=== PATIENT | female | born 1935 | race Caucasian/White ===

== ENCOUNTER 2017-04-23 09:04 | Emergency (ER) | payer OTHER ==
[~2017-04-23] VITALS: Ht 167.6 cm; Wt 53.5 kg
--- NOTE | ~2017-04-23 | CR58 ---
[facility] A Service of [facility] / [facility] RADIOLOGY TEXT RESULTS PATIENT: GAGAN HORVATH LOCATION: [facility] : 37 UNIT #: [id number] AGE: [address]: Giovanny Guevara MD SEX: F ORDER DR: [id number] [place] [id number] [facility]. [place], [place] [address] [id number] E MR#: [id number] Acc #: [id number] NAME: GAGAN HORVATH : 1935 SEX: F STUDY DATE/TIME: UNIT: [facility] ROOM: STUDY DESCRIPTION: CR Cervical Spine 2 or 3 Views Attending Physician: Giovanny Guevara Ordering Physician: Ed Jorden Morse M.D. Primary Care Physician: Shree Arguello Jr., M.D. MEDICAL IMAGING REPORT This report is preliminary unless electronic signature is present EXAM Cervical spine series 04/23/2017 1114 hours HISTORY Patient fell this morning with neck pain since fall, bruising on right knee COMPARISON None FINDINGS AP, lateral and open mouth views are performed. Lateral swimmer's view included. C1-T1 are visualized. There is no prevertebral soft tissue swelling, fracture or malalignment. There is disc height loss and endplate spurring most prominent at C5-6 and C6-7. There is facet arthropathy in the mid cervical levels, left greater than right. IMPRESSION 1. No acute fracture or malalignment. 2. Degenerative disc disease and facet arthropathy C5-6 and C6-7. There is facet arthropathy left greater than right in the mid cervical levels. Findings appear chronic. Dictated by... Maribel Aaron M.D. THIS IS AN ELECTRONICALLY VERIFIED REPORT Maribel Aaron M.D. at 04/23/2017 2:31 PM SMM/torres TD: 04/23/2017 13:46 JOB #: [id number] [facility] A Service of [facility] / [facility] RADIOLOGY TEXT RESULTS PATIENT: GAGAN HORVATH LOCATION: [facility] : 37 UNIT #: [id number] AGE: [address]: Giovanny Guevara MD SEX: F ORDER DR: MEDICAL IMAGING REPORT Page 1 of 1 COPY
--- NOTE | ~2017-04-23 | CR173 ---
[facility] RADIOLOGY TEXT RESULTS PATIENT: GAGAN HORVATH LOCATION: [facility] : 37 UNIT #: [id number] AGE: [address]: Giovanny Guevara MD SEX: F ORDER DR: [id number] [facility] [address] [place], [place] [address] [id number] E MR#: [id number] Acc #: [id number] NAME: GAGAN HORVATH : 1935 SEX: F STUDY DATE/TIME: 04/23/2017 11:20 UNIT: [facility] ROOM: STUDY DESCRIPTION: CR Knee 3 Views Rt Attending Physician: Prosper Guevara M.D. Ordering Physician: Ed Doctor [id number] [facility] Primary Care Physician: Shree Arguello Jr., M.D. MEDICAL IMAGING REPORT This report is preliminary unless electronic signature is present EXAM Right knee 3 views 04/23/2017 1120 hours HISTORY Patient fell this morning with complaint of bruising and pain at right knee. COMPARISON None. FINDINGS AP, lateral and sunrise views demonstrate atherosclerotic changes and surgical clips in the soft tissues medially and posteriorly. There is no knee joint effusion or fracture seen. The patella appears low riding on the lateral view which could be due to positioning but could indicate underlying ligamentous or tendinous injury. There is no fracture or significant spurring. IMPRESSION 1. No joint effusion or fracture. On the lateral view, the patella appears to be inferiorly displaced or low-riding. This could be indicative of prior tendon or ligament injury. Correlate clinically. There is no significant joint space loss or spurring. No fracture. 2. Diffuse atherosclerotic changes with surgical clips present. Dictated by... Maribel Aaron M.D. THIS IS AN ELECTRONICALLY VERIFIED REPORT Maribel Aaron M.D. at 04/23/2017 2:31 PM [facility] A Service of [facility] RADIOLOGY TEXT RESULTS PATIENT: GGAAN HORVATH LOCATION: [facility] : 37 UNIT #: [id number] AGE: [address]: Giovanny Guevara MD SEX: F ORDER DR: TD: 04/23/2017 13:32 JOB #: [id number] MEDICAL IMAGING REPORT Page 1 of 1 COPY
--- NOTE | ~2017-04-23 | CT71 ---
[facility] A Service of [facility] & [facility] RADIOLOGY TEXT RESULTS PATIENT: GAGAN HORVATH LOCATION: [facility] : 37 UNIT #: [id number] AGE: [address]: Giovanny Guevara MD SEX: F ORDER DR: [id number] [facility] [address] [place], [place] [address] [id number] E MR#: [id number] Acc #: [id number] NAME: GAGAN HORVATH : 1935 SEX: F STUDY DATE/TIME: 04/23/2017 11:46 UNIT: [facility] ROOM: STUDY DESCRIPTION: CT Head Wo Contrast Attending Physician: Prosper Guevara M.D. Ordering Physician: Ed Doctor [id number] [facility] Primary Care Physician: Shree Arguello Jr., M.D. MEDICAL IMAGING REPORT This report is preliminary unless electronic signature is present EXAM CT head, 04/23/2017 HISTORY Very confused, unable to follow commands, unable to remove metal from mouth best obtainable. Fall at [facility]. Hit face and left knee today. Bruising to right forehead, laceration to top lip, dementia, hypertension. TECHNIQUE CT head performed skull base through vertex without intravenous contrast. This CT exam was performed with one or more of the following radiation dose reduction techniques: automatic exposure control, adjustment of mA and/or kV according to patient size, and iterative reconstruction. COMPARISON 08/24/2013 FINDINGS The brainstem is unremarkable. Multiple images degraded by streak/motion artifact. The cerebellum and cerebral hemispheres show overall preservation of iyer matter-white matter differentiation. There is no hemorrhage. There is no evidence of acute cortical ischemia. Extensive periventricular and deep white matter tract probable sequelae of chronic microvascular ischemia. The basal ganglia show no acute abnormality. There are bilateral basal ganglia calcifications. The ventricles, cisterns and sulci show moderate generalized enlargement consistent with moderate generalized atrophy. No intra or extraaxial mass effect or abnormal intracranial fluid collection. Extensive cavernous carotid and distal vertebral arterial calcifications. The intraorbital soft tissues show no acute abnormality. No fracture. Soft tissue swelling right periorbital region most pronounced on this examination in the supraorbital STS. [facility] A Service of [facility] & [facility] RADIOLOGY TEXT RESULTS PATIENT: GAGAN HORVATH LOCATION: [facility] : 37 UNIT #: [id number] AGE: [address]: Giovanny Guevara MD SEX: F ORDER DR: region. Small subcutaneous contusion/hematoma. No soft tissue defect, subcutaneous air or radiodense foreign body. IMPRESSION 1. Motion degraded study. No acute abnormality is seen in the brain. If patient has ongoing neurologic symptoms, consider follow up imaging. 2. Chronic changes include: Moderate generalized atrophy, extensive periventricular and deep white matter tract probable sequelae of chronic microvascular ischemia, extensive vascular calcification. 3. No fracture. 4. Right periorbital soft tissue swelling most pronounced on this examination in the supraorbital region with a small supraorbital contusion/hematoma. No soft tissue defect, subcutaneous air or radiodense foreign body. Dictated by... Gabe Clemente M.D. THIS IS AN ELECTRONICALLY VERIFIED REPORT Gabe Clemente M.D. at 04/24/2017 6:35 PM Angelo TD: 04/23/2017 13:47 JOB #: [id number] MEDICAL IMAGING REPORT Page 1 of 1 COPY
--- NOTE | ~2017-04-23 | CT101 ---
[facility] A Service of [facility] & [facility] RADIOLOGY TEXT RESULTS PATIENT: GAGAN HORVATH LOCATION: [facility] : 37 UNIT #: [id number] AGE: [address]: Giovanny Guevara MD SEX: F ORDER DR: [id number] [facility] [address] [place], [place] [address] [id number] E MR#: [id number] Acc #: [id number] NAME: GAGAN HORVATH : 1935 SEX: F STUDY DATE/TIME: 04/23/2017 11:46 UNIT: [facility] ROOM: STUDY DESCRIPTION: CT Maxillofacial Area Wo Cont Attending Physician: Giovanny Guevara Ordering Physician: Ed Jorden Morse M.D. Primary Care Physician: Shree Arguello Jr., M.D. MEDICAL IMAGING REPORT This report is preliminary unless electronic signature is present EXAM CT maxillofacial area 04/26/2017 HISTORY Confused, unable to follow commands, unable to remove metal from mouth, best obtainable, fall at [facility], hit face and left knee today, bruising to right forehead, laceration to top lip. TECHNIQUE CT facial bones performed. Bone and soft tissue windows reviewed. Sagittal, coronal reconstructions performed. This CT exam was performed with one or more of the following radiation dose reduction techniques: automatic exposure control, adjustment of mA and/or kV according to patient size, and iterative reconstruction. FINDINGS Please see today's dedicated CT of the brain for full discussion of intracranial findings. The intraorbital soft tissues are unremarkable. The visualized nasopharyngeal, oral pharyngeal, soft tissues notable for prominent palatine tonsillar tonsilliths. The visualized submandibular parotid glands unremarkable. There are atherosclerotic arterial calcifications. Soft tissue swelling right periorbital region more pronounced in the supraorbital region. The patient's reported lip laceration not well demonstrated. No subcutaneous air or radiodense foreign body is seen. The visualized bones of calvaria are intact. The paranasal sinuses and mastoid air cells are notable for mucosal thickening and some air-fluid levels in left mastoid air cells. Minimal mucosal thickening right maxillary sinus. Nasal bones intact. Nasal septum in midline. Ostiomeatal complexes patent. The orbital bony structures are remarkable. The zygomas, zygomatic arches, pterygoid plates unremarkable. The mandible is intact. There is an uninterrupted right paracentral upper tooth. Streak artifact from dental hardware. [facility]. [facility] A Service of [facility] & [facility] RADIOLOGY TEXT RESULTS PATIENT: GAGAN HORVATH LOCATION: [facility] : 37 UNIT #: [id number] AGE: [address]: Giovanny Guevara MD SEX: F ORDER DR: Degenerative change in the visualized cervical spine. No fracture is suggested. There is evidence of grade 1 anterolisthesis C4 on C5 by approximately 2 mm. IMPRESSION 1. No traumatic fracture or malalignment. 2. Soft tissue swelling right periorbital soft tissues more pronounced in the supraorbital region. No soft tissue defect, subcutaneous air or radiodense foreign bodies seen. 3. Vascular calcifications. 4. Mucosal thickening in the right maxillary sinus. Mucosal thickening and some small air-fluid levels in the left mastoid air cells. Correlate with any clinical signs or symptoms of mastoid inflammation. 5. 2 mm anterolisthesis C4 on C5 likely due to disc and facet degenerative changes. Dictated by... Gabe Clemente M.D. THIS IS AN ELECTRONICALLY VERIFIED REPORT Gabe Clemente M.D. at 04/24/2017 6:35 PM PAVAN/torres TD: 04/23/2017 14:07 JOB #: [id number] MEDICAL IMAGING REPORT Page 1 of 1 COPY
[2017-04-23] MEDS ORDERED: MULTIVITAMINS1 EAC3 PO (10:08)
[2017-04-23] MEDS ORDERED: ASPIRIN81 M2 PO (10:08)
[2017-04-23] MEDS ORDERED: NORVASC2.5 MG PO (10:09)
[2017-04-23] MEDS ORDERED: HYDROCHLOROTH12.5 M1 PO (10:09)
[2017-04-23] MEDS ORDERED: LISINOPRIL PO (10:09)
[2017-04-23] MEDS ORDERED: METOPROLOL SUC100 MG PO (10:10)
[2017-04-23] MEDS ORDERED: CLOPIDOGREL75 MG PO (10:10)
[2017-04-23] MEDS ORDERED: SENNA8.6 M1 PO (10:11)
[2017-04-23] MEDS ORDERED: SEROQUEL PO (10:11)
[2017-04-23] MEDS ORDERED: DESYREL50 MG PO (10:11)
[2017-04-23] MEDS ORDERED: MILK OF MAGNESIA PO ×2 (10:11→10:12)
[2017-04-23] MEDS ORDERED: REMERON PO (10:12)
[2017-04-23] MEDS ORDERED: ZOCOR PO (10:12)
== END 2017-04-23 14:35 | disposition short-term general hospital (02) ==
LOC: CED 09:04
DX: S01.511A Laceration without foreign body of lip, initial encounter (principal); I10 Essential (primary) hypertension; F03.90 Unspecified dementia, unspecified severity, without behavioral disturbance, psychotic disturbance, mood disturbance, and anxiety; Z79.899 Other long term (current) drug therapy; W01.10XA Fall on same level from slipping, tripping and stumbling with subsequent striking against unspecified object, initial encounter; Y92.129 Unspecified place in nursing home as the place of occurrence of the external cause
CPT/HCPCS: 70450; 70486; 72040; 73562; 99284